=== PATIENT | female | born 1950 | race Caucasian/White ===

== ENCOUNTER 2024-09-01 05:33 | Day surgery (SDC) | payer OTHER ==
[2024-09-01] MEDS ORDERED: ONDANSETRON 4 MG/2 ML VIAL ONE (07:26)
[2024-09-01] MEDS ORDERED: DEXAMETHASONE SOD PHOSPHATE 4 MG/1 ML VIAL ONE (07:26)
[2024-09-01] MEDS ORDERED: SODIUM CHLORIDE 0.9% P/F 10 ML VIAL IJ ONE (07:26)
[2024-09-01] MEDS ORDERED: ceFAZolin SODIUM 1 GM VIAL ONE ×2 (07:26→12:42)
[2024-09-01] MEDS ORDERED: LIDOCAINE HCL/PF 2% SDV 5ML VIAL ONE (07:26)
[2024-09-01] MEDS ORDERED: ALBUTEROL SO4 HFA INHALER IH ONE (07:30)
[2024-09-01] MEDS ORDERED: PROPOFOL 20 ML ONE (07:31)
[2024-09-01] MEDS ORDERED: SUCCINYLCHOLINE CHLORIDE 200 MG/10 ML SYRINGE ONE (07:31)
[2024-09-01] MEDS ORDERED: MIDAZOLAM HCL 2 MG/2 ML SINGLE DOSE VIAL ONE (07:32)
[2024-09-01] MEDS: ceFAZolin SODIUM 1 GM VIAL IVPB ONE ×2 (08:10)
[2024-09-01] MEDS ORDERED: PHENYLEPHRINE HCL 10 MG/1 ML SINGLE DOSE VIAL ONE (08:13)
[2024-09-01] MEDS: LIDOCAINE HCL 1%, 10 MG/ML (50 mL VIAL) INF ONE ×2 (08:29)
[2024-09-01] MEDS ORDERED: ALBUTEROL SO4 HFA INHALER IH PRN (09:05)
[2024-09-01] MEDS ORDERED: oxyCODONE HCL 5 MG TABLET PO PRN (09:06)
[2024-09-01] MEDS ORDERED: LACTATED RINGERS SOLUTION 1,000 ML IV SCH (09:15)
[2024-09-01] MEDS ORDERED: LISINOPRIL 10 MG TABLET PO SCH (10:00)
[2024-09-01] MEDS ORDERED: BUDESONIDE/FORMETEROL FUMARATE 160/4.5 mcg INHALER IH SCH (10:00)
[2024-09-01] MEDS ORDERED: CLOPIDOGREL BISULFATE 75 MG TABLET (FP) PO SCH (10:00)
[2024-09-01] MEDS ORDERED: ASPIRIN COATED 81 MG TABLET.EC PO SCH (10:00)
[2024-09-01 13:56] VITALS: BP 99/46; PULSE 64; RESP 22; TEMP 97.3
[2024-09-01] MEDS ORDERED: CEFAZOLIN IVPB SCH (16:00)
[2024-09-01] MEDS ORDERED: SODIUM CHLORIDE IVPB SCH (16:00)
[2024-09-01] MEDS ORDERED: ATORVASTATIN CA 20 MG TABLET (FP) PO SCH (22:00)
== END 2024-09-01 13:40 | disposition home or self-care (01) ==
LOC: JASUSAT 05:33
PROVIDERS: ATTEND Surgery
PROC: 0HRNXJZ Replacement of Left Foot Skin with Synthetic Substitute, External Approach (ICD-10-PCS; 2024-09-01)
PROC: 0LBT0ZZ Excision of Left Ankle Tendon, Open Approach (ICD-10-PCS; principal; 2024-09-01 08:00)
DX: S91.002D Unspecified open wound, left ankle, subsequent encounter (principal); X58.XXXD Exposure to other specified factors, subsequent encounter
CPT/HCPCS: 82962; 88304-TC; 94760; 97116-GP

== ENCOUNTER 2024-09-28 07:09 | Day surgery (SDC) | payer OTHER ==
[2024-09-23 14:08] VITALS: BMI 19.9
[2024-09-28 10:11] VITALS: RESP 18
[2024-09-28] MEDS ORDERED: HEPARIN NA (PORCINE) 5,000 UNITS/ML 1ML VIAL ONE (11:33)
[2024-09-28] MEDS ORDERED: LIDOCAINE HCL 1%, 10 MG/ML (20ML VIAL) ONE (11:33)
[2024-09-28] MEDS ORDERED: LACTATED RINGERS SOLUTION 1,000 ML IV SCH (11:45)
[2024-09-28] MEDS ORDERED: oxyCODONE HCL 5 MG TABLET PO PRN (11:45)
[2024-09-28] MEDS ORDERED: ACETAMINOPHEN 1000 MG/100 ML BAG IVPB PRN (11:45)
[2024-09-28] MEDS ORDERED: ONDANSETRON 4 MG/2 ML VIAL IVPUSH PRN (11:45)
[2024-09-28] MEDS ORDERED: PROPOFOL 20 ML ONE (11:56)
[2024-09-28] MEDS ORDERED: MIDAZOLAM HCL 2 MG/2 ML SINGLE DOSE VIAL ONE (11:56)
[2024-09-28] MEDS ORDERED: ceFAZolin SODIUM 1 GM VIAL ONE (12:00)
[2024-09-28] MEDS: ceFAZolin SODIUM 1 GM VIAL IVPB ONE ×2 (12:05)
[2024-09-28] MEDS: LIDOCAINE HCL 1%, 10 MG/ML (50 mL VIAL) INF ONE ×2 (12:09)
[2024-09-28] MEDS ORDERED: ACETAMINOPHEN 325 MG TABLET (FP) PO PRN (13:49)
[2024-09-28 15:57] VITALS: BP 130/52; PULSE 60; TEMP 97.8
== END 2024-09-28 16:00 | disposition home or self-care (01) ==
LOC: JASU-SURG 07:09
PROVIDERS: ATTEND Surgery
PROC: 047L3D1 Dilation of Left Femoral Artery with Intraluminal Device, using Drug-Coated Balloon, Percutaneous Approach (ICD-10-PCS; principal; 2024-09-28 12:00)
DX: I70.243 Atherosclerosis of native arteries of left leg with ulceration of ankle (principal)
CPT/HCPCS: 37226; C1877; 76000-TC-FY; 82962; 94760; C1769; C1874; C1894